=== PATIENT | female | born 1990 | race Caucasian/White ===

== ENCOUNTER 2016-07-31 21:14 | Emergency (ER) | payer MEDICAID ==
[~2016-07-31] VITALS: Ht 170.2 cm; Wt 83.0 kg
[~2016-07-31 21:14] MED LIST: ONDA4TAB35 PO
[2016-07-31 22:26] VITALS: Ht 170.2 cm; Wt 83.0 kg
[2016-08-01] MEDS ORDERED: ONDANSETRON (ODT) 4 MG TAB ODT STA (00:05)
[2016-08-01] MEDS ORDERED: ACETAMINOPHEN 500 MG TAB PO STA (00:05)
[2016-08-01] MEDS ORDERED: PENICILLIN G BENZ 1.2 MIL UNIT SYG IM ONE (00:30)
[2016-08-01] MEDS ORDERED: ACET500C5 PO (01:26)
[2016-08-01] MEDS ORDERED: IBUP-1542 PO (01:26)
[2016-08-01] MEDS ORDERED: ONDA4TAB8 PO (01:44)
--- NOTE | 2016-08-01 01:44 | ERD ---
ER Documentation Chief Complaint Date/Time DATE: 08/01/16 TIME: 01:[address] Chief [address] fever and st for 2 days HPI Patient is a 25 year old female who presents to the ED with sore throat, fever, nausea and vomiting x 2 days. She states she has difficulty swallowing. Denies difficulty breathing. Complains of swollen tonsils. Denies diarrhea, cough, shortness of breath or difficulty breathing. Denies runny nose, headache, dizziness or blurry vision. Denies leg pain or swelling. Denies abdominal pain. Has not taken any medications for her symptoms. ROS All systems reviewed and are negative except as per history of present illness. Medications Home Meds Active Scripts Acetaminophen* (Tylophen*) 500 Mg Capsule, 1 CAP PO Q6H Y for PAIN AND OR ELEVATED TEMP, #20 CAP Prov:AKIN PARMAR PA-C 08/01/16 Ibuprofen* (Motrin*) 600 Mg Tab, 600 MG PO Q6, #30 TAB Prov:AKIN PARMAR PA-C 08/01/16 Ondansetron Hcl* (Zofran* ODT) 4 mg -ODT Tab.disper, 4 MG PO Q6 Y for NAUSEA AND /OR VOMITING, #10 TAB Prov:VENKATA PALOMO PA-C 10/10/15 Allergies Allergies: Coded Allergies: No Known Allergies (Verified Allergy, Unknown, 10/10/15) PMhx/Soc Medical and Surgical Hx: pt denies Medical Hx, pt denies Surgical Hx History of Surgery: No Anesthesia Reaction: No Hx Neurological Disorder: No Hx Respiratory Disorders: No Hx Cardiac Disorders: No Hx Psychiatric Problems: No Hx Miscellaneous Medical Probl: No Hx Alcohol Use: No Hx Substance Use: No Hx Tobacco Use: No Smoking Status: Never smoker Physical Exam Vitals Vital Signs Date Time Temp Pulse Resp B/P Pulse Ox O2 Delivery O2 Flow Rate FiO2 08/01/16 01:09 100.7 07/31/16 22:26 102.1 133 20 121/77 98 Physical Exam GENERAL: Well-developed, well-nourished female. Appears in no acute distress. HEAD: Normocephalic, atraumatic. EYES: Pupils are equally reactive bilaterally. EOMs grossly intact. No conjunctival erythema. ENT: Moist mucous membranes. No uvula deviation. No kissing tonsils. Enlarged tonsils, with bilateral exudates. No uvula deviation NECK: Supple. No lymphadenopathy or thyromegaly. No meningismus. negative kernig. negative brudinski. LUNG: Clear to auscultation bilaterally. No rhonchi, wheezing, rales or coarse breath sounds. HEART: Regular rate and rhythm. No murmurs, rubs or gallops. ABDOMEN: No scars, ecchymosis or rashes noted. Soft, nontender, and nondistended. Positive bowel sounds in all four quadrants. No rebound tenderness , no guarding. (-) McBurneys point tenderness. No CVA tenderness. SKIN: Normal color. Warm and dry. No rashes or lesions. Capillary refill < 2 seconds moist mucous membrane Results 24 hrs Current Medications Medications (Trade) Dose Ordered Sig/Conchita Route PRN Reason Start Time Stop Time Status Last Admin Dose Admin Penicillin G Benzathine (Bicillin La) 1,200,000 units ONCE ONCE IM 08/01/16 00:30 08/01/16 00:31 DC 08/01/16 00:39 Ondansetron HCl (Zofran Odt) 4 mg ONCE STAT ODT 08/01/16 00:05 08/01/16 00:07 DC 08/01/16 00:16 Acetaminophen (Tylenol Tab) 1,000 mg ONCE STAT PO 08/01/16 00:05 08/01/16 00:07 DC Procedures/MDM ER COURSE: I kept the patient and/or family informed of laboratory and diagnostic imaging results throughout the emergency room course. MEDICATIONS: Benzathine penicillin given to patient with no adverse reaction. Zofran and Tylenol 1 g given to patient. MEDICAL DECISION MAKING: This is a 25-year-old female who presents with sore throat, fever and nausea. Vital signs were reviewed. Patient is not hypoxic. Patient has a temperature of 102.1 in the ED. After 1 g of Tylenol, temperature is down trending. Patient likely has strep pharyngitis. Low suspicion for peritonsillar abscess, mononucleosis, dental abscess. There is no kissing tonsils or uvula deviation. Patient's vomiting is likely related to her strep. I have low suspicion for acute abdomen, Low suspicion for ACS, AAA, perforated ulcer, bowel obstruction, cholecystitis, choledocholithiasis, cholangitis, pancreatitis, hepatic abscess, appendicitis, diverticulitis, gastroenteritis, hepatitis, peptic ulcer disease, HELLP syndrome. \DISCHARGE: At this time, patient is stable for discharge and outpatient management with no new complaints during the ER course. Patient was sent home with Tylenol, Motrin. Patient will be discharged home with instructions to recheck for new or worsening symptoms such as fever, nausea, weakness, LOC and to follow up with primary care in the next 1-2 days. Patient was advised to return to the ER for any new or worsening symptoms. Plan was discussed and patient and/or family understands and agrees. Home instructions were given. Departure Diagnosis: Primary Impression: Strep pharyngitis Condition: Stable Patient Instructions: Strep Throat Additional Instructions: Return to this facility in 2 DAYS for a follow-up exam.Return sooner if your condition worsens. AKIN PARMAR PA-C Aug 01, 2016 01:44
[2016-08-01 02:00] VITALS: BP 117/69; PULSE 110; RESP 20; TEMP 99.7
== END 2016-08-01 02:00 | disposition home or self-care (01) ==
LOC: FTE 21:14
DX: J20.0 Acute bronchitis due to Mycoplasma pneumoniae (principal); R11.2 Nausea with vomiting, unspecified
CPT/HCPCS: 96372; J0561; Z7502; Z7610

== ENCOUNTER 2016-10-13 01:33 | Emergency (ER) | payer MEDICAID ==
[~2016-10-13] VITALS: Ht 162.6 cm; Wt 80.0 kg
[~2016-10-13 01:33] MED LIST changes: +ACET500C5 PO; +IBUP-1542 PO; +ONDA4TAB8 PO
[2016-10-13 01:35] VITALS: Ht 162.6 cm; Wt 80.0 kg
[2016-10-13] MEDS ORDERED: HYDR-3011 PO (02:14)
[2016-10-13] MEDS ORDERED: CLOT30CR24 TOP (02:14)
[2016-10-13] MEDS ORDERED: CEPH-443 PO (02:14)
--- NOTE | 2016-10-13 02:43 | ERD ---
ER Documentation Chief Complaint Date/Time DATE: 10/13/16 TIME: 02:30 Chief Complaint Pt reports redness under L eye and at L mouth that started friday HPI 26-year-old female presents here in emergency department for complaints of a rash in the left angle of the mild cracking of the skin and pain, and also redness just under the left eye, is complaining of itching of affected area and some pain burning pain 4/10 scale, as was upon touching the area. Patient denies any fever or chills. Patient denies any eye pain. Patient denies any discharge coming from the area. ROS All systems reviewed and are negative except as per history of present illness. Medications Home Meds Active Scripts Hydroxyzine Hcl* (Hydroxyzine Hcl*) 25 Mg Tablet, 25 MG PO Q8H Y for ITCHING, # 30 TAB Prov:LUCILLE PLASCENCIA NP 10/13/16 Cephalexin* (Keflex*) 500 Mg Capsule, 500 MG PO QID for 10 Days, CAP Prov:LUCILLE PLASCENCIA NP 10/13/16 Clotrimazole* (Clotrimazole* AF) 1% - 30 Gm Cream.gm., 1 APPLIC TOP BID for 7 Days, TUB Prov:LUCILLE PLASCENCIA NP 10/13/16 Ondansetron Hcl* (Zofran*) 4 Mg Tablet, 4 MG PO Q6H for NAUSEA AND/OR VOMITING, #30 TAB Prov:AKIN PARMAR PA-C 08/01/16 Acetaminophen* (Tylophen*) 500 Mg Capsule, 1 CAP PO Q6H Y for PAIN AND OR ELEVATED TEMP, #20 CAP Prov:JACQUIETARIANAKINC 08/01/16 Ibuprofen* (Motrin*) 600 Mg Tab, 600 MG PO Q6, #30 TAB Prov:JACQUIETAAKIN CRANEC 08/01/16 Ondansetron Hcl* (Zofran* ODT) 4 mg -ODT Tab.disper, 4 MG PO Q6 Y for NAUSEA AND /OR VOMITING, #10 TAB Prov:VENKATA PALOMO PA-C 10/10/15 Allergies Allergies: Coded Allergies: No Known Allergies (Verified Allergy, Unknown, 10/10/15) PMhx/Soc Medical and Surgical Hx: pt denies Medical Hx, pt denies Surgical Hx History of Surgery: No Anesthesia Reaction: No Hx Neurological Disorder: No Hx Respiratory Disorders: No Hx Cardiac Disorders: No Hx Psychiatric Problems: No Hx Miscellaneous Medical Probl: No Hx Alcohol Use: No Hx Substance Use: No Hx Tobacco Use: No Smoking Status: Never smoker FmHx Family History: No coronary disease, No diabetes, No other Physical Exam Vitals Vital Signs Date Time Temp Pulse Resp B/P Pulse Ox O2 Delivery O2 Flow Rate FiO2 10/13/16 01:35 98.9 84 18 137/81 98 Physical Exam GENERAL: The patient is well developed and appropriate for usual state of health, in no apparent distress. CHEST: Clear to auscultation bilaterally. There are no rales, wheezes or rhonchi. HEART: Regular rate and rhythm. No murmurs, clicks, rubs or gallops. No S3 or S4. ABDOMEN: Soft, nontender and nondistended. Good bowel sounds. No rebound or guarding. No gross peritonitis. No gross organomegaly or masses. No Love sign or McBurney point tenderness. BACK: No midline or flank tenderness. EXTREMITIES: Equal pulses bilaterally. There is no peripheral clubbing, cyanosis or edema. No focal swelling or erythema. Full range of motion. Grossly neurovascularly intact. NEURO: Alert and oriented. Cranial nerves 2-12 intact. Motor strength in all 4 extremities with 5/5 strength. Sensation grossly intact. Normal speech and gait. SKIN: noted dryness of skin and crack on left angle of the mouth. noted the redness under the left eye. There is no apparent rash or petechia. The skin is warm and dry. HEMATOLOGIC AND LYMPHATIC: There is no evidence of excessive bruising or lymphedema. No gross cervical, axillary, or inguinal lymphadenopathy. Procedures/MDM Medical Decision Making: Patient's symptoms most likely consistent angular cheilitis,possible alee, will be given Clotrimazole, can be also early bacterial infection, will treat with Keflex, patient redness under the left eye , can be alee, no s/s of orbital cellulitis, periorbital cellulitis. See denial resolution specialist if not better. Rx: keflex, clotrimazole, hydroxyzine Departure Diagnosis: Primary Impression: Facial rash Additional Impression: Angular cheilitis Condition: Stable Patient Instructions: Self-Care for Skin Rashes Additional Instructions: see denial resolution specialist if not improved LUCILLE PLASCENCIA NP Oct 13, 2016 02:43
== END 2016-10-13 02:33 | disposition home or self-care (01) ==
LOC: FTE 01:33
DX: R21 Rash and other nonspecific skin eruption (principal); K13.0 Diseases of lips
CPT/HCPCS: 99284